=== PATIENT | female | born 1965 | race African-American/Black ===

== ENCOUNTER 2018-07-22 08:52 | Emergency (ER) | payer SELFPAY ==
[2018-07-22 09:06] VITALS: TEMP 97.9
--- NOTE | 2018-07-22 09:24 | ED.PDOC ---
History of Present Illness - General Chief Complaint: Respiratory Problem Stated Complaint: congestion, nosebleed Time Seen by Provider: 07/22/18 09:11 Source: patient Exam Limitations: no limitations - History of Present Illness Initial Comments: the patient is a 53-year-old -[place] female presenting to the emergency room secondary to symptoms of a mild intermittent headache along with a stuffy and runny nose and some mild sneezing for the last week. No fevers. No sore throat. This morning she had a little bit of right anterior epistaxis. She has not had any issues with epistaxis in the past. No bleeding problems. No easy bruising. No recent trauma. Physical exam shows the nares are boggy bilaterally. Tympanic membranes do have a small amount of fluid behind them. Lungs are clear. She does appear to have a small scratch at the base of the right anterior nares. It is hemostatic at this point. Timing/Duration: 1 week Severity: mild Improving Factors: nothing Worsening Factors: nothing Associated Symptoms: cough Allergies/Adverse Reactions: Allergies NO KNOWN ALLERGY Allergy (Verified 07/22/18 09:16) Home Medications: Ambulatory Orders Fluticasone Propionate (Nasal) [Flonase] 50 mcg BNAS BID #1 bottle 07/22/18 Review of Systems - Review of Systems Constitutional: States: malaise EENTM: States: nose congestion Respiratory: States: cough - mild Cardiology: States: no symptoms reported Gastrointestinal/Abdominal: States: no symptoms reported Genitourinary: States: no symptoms reported Musculoskeletal: States: no symptoms reported Skin: States: no symptoms reported Neurological: States: no symptoms reported Endocrine: States: no symptoms reported All other Systems: No Change from Baseline Past Medical History (General) - Patient Medical History Hx Stroke: No Hx Asthma: No Hx Congestive Heart Failure: No Hx Diabetes: No Surgical History: other Family Medical History - Family History Mother Family History: No Known Physical Exam - Physical Exam General Appearance: Alert, Comfortable, No apparent distress Eye Exam: bilateral normal Ears, Nose, Throat: hearing grossly normal, normal pharynx, nasal congestion Neck: full range of motion, supple Respiratory: lungs clear, normal breath sounds, no respiratory distress, no accessory muscle use Cardiovascular/Chest: normal peripheral pulses, regular rate, rhythm, no edema Peripheral Pulses: radial,right: 2+, radial,left: 2+, dorsalis pedis,right: 2+, dorsalis pedis,left: 2+ Gastrointestinal/Abdominal: non tender, soft Rectal Exam: deferred Extremity: normal range of motion, non-tender, normal inspection, no pedal edema , normal capillary refill 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 She was hemostatic upon arrival. She can apply a small amount of Vaseline to the right anterior nares a couple of times daily to help prevent any rebleeding. Additionally the patient can use a steroid nasal spray for which she'll be written a prescription or she can use an vzwi-jtg-jarioop steroid nasal spray as she wishes twice daily until her seasonal allergies have subsided. She did receive 1 dose of oral prednisone here today. A humidifier at night may also help prevent the nares from drying out and prevent rebleeding. To that end, it is also advisable to sleep without a fan or vent blowing on her face at night. She needs to keep routine follow- up with her primary care doctor otherwise. ER warnings were given. Departure - Departure Clinical Impression: Seasonal allergies, Anterior epistaxis Disposition: Discharge to Home or Self Care Condition: Fair Departure Forms: ED Discharge - Pt. Copy, Patient Portal Self Enrollment Instructions: Seasonal Allergies in Adults, Nosebleeds (DC) Diet: regular diet Activity: increase activity as tolerated Prescriptions: Fluticasone Propionate (Nasal) [Flonase] 50 mcg BNAS BID #1 bottle Home Medications: Ambulatory Orders Fluticasone Propionate (Nasal) [Flonase] 50 mcg BNAS BID #1 bottle 07/22/18 Additional Instructions: the patient is a 53-year-old female presenting to the emergency room with what appears to be allergic rhinitis of at least 1-2 weeks' duration along with an associated right anterior epistaxis. She was hemostatic upon arrival. She can apply a small amount of Vaseline to the right anterior nares a couple of times daily to help prevent any rebleeding. Additionally the patient can use a steroid nasal spray for which she'll be written a prescription or she can use an wpry-vbm-viahure steroid nasal spray as she wishes twice daily until her seasonal allergies have subsided. She did receive 1 dose of oral prednisone here today. A humidifier at night may also help prevent the nares from drying out and prevent rebleeding. To that end, it is also advisable to sleep without a fan or vent blowing on her face at night. She needs to keep routine follow- up with her primary care doctor otherwise. ER warnings were given.
[2018-07-22] MEDS: predniSONE 20 MG TAB PO ONE (09:29)
[2018-07-22 09:47] VITALS: BP 148/91; O2SAT 97
== END 2018-07-22 09:49 | disposition home or self-care (01) ==
LOC: ER 08:52
DX: J30.2 Other seasonal allergic rhinitis (principal); R04.0 Epistaxis

== ENCOUNTER 2018-07-23 12:59 | Emergency (ER) | payer SELFPAY ==
--- NOTE | 2018-07-23 13:26 | ED.PDOC ---
History of Present Illness - General Chief Complaint: ENT Problem Stated Complaint: nosebleed Time Seen by Provider: 07/23/18 13:12 Source: patient Exam Limitations: no limitations - History of Present Illness Initial Comments: Ara Inman 53 y/o female stated that she had been having nosebleeds since yesterday mostly right nostril. she had nasal congestion /drainage for 1 week.Denies nose pain or trauma.No chronic medical problem Timing/Duration: yesterday Severity: moderate EENT Location: nose Prearrival Treatment: over the counter meds Presenting Symptoms: nosebleed Improving Factors: nothing Worsening Factors: nothing Associated Symptoms: nasal congestion/drainage Allergies/Adverse Reactions: Allergies NO KNOWN ALLERGY Allergy (Verified 07/22/18 09:16) Home Medications: Ambulatory Orders Fluticasone Propionate (Nasal) [Flonase] 50 mcg BNAS BID #1 bottle 07/22/18 Amoxicillin [Amoxil] 1,000 mg PO BID 7 Days #30 cap 07/23/18 Loratadine & Pseudoephedrine [Claritin-D 24 Hour 10-240 mg] 1 tab PO DAILY #30 tab 07/23/18 Review of Systems - Review of Systems Constitutional: States: no symptoms reported EENTM: States: see HPI Respiratory: States: no symptoms reported Cardiology: States: no symptoms reported Gastrointestinal/Abdominal: States: no symptoms reported Genitourinary: States: no symptoms reported Musculoskeletal: States: no symptoms reported Skin: States: no symptoms reported Neurological: States: no symptoms reported Past Medical History (General) - Patient Medical History Hx Stroke: No Hx Asthma: No Hx Congestive Heart Failure: No Hx Diabetes: No Surgical History: no surgical history - Social History Hx Alcohol Use: Yes - 2 beers - Activities of Daily Living Patient Lives Alone: No - Female History Patient is a Female of Child Bearing Age (10 -59 yrs old): No Family Medical History - Family History Mother Family History: No Known Hx Family Hypertension: Yes - mom Hx Family Diabetes: Yes - mom Physical Exam - Physical Exam General Appearance: Alert, Comfortable, No apparent distress Eye Exam: bilateral normal Ear Exam: bilateral ear: auricle normal, canal normal, TM normal Nasal Exam: dried blood - right nostril > left Throat Exam: normal mouth inspection, pharynx normal Neck: non-tender, full range of motion, supple Cardiovascular/Respiratory: regular rate, rhythm, no M/R/G, normal peripheral pulses, no JVD, normal breath sounds Neurologic: alert, oriented x 3 Skin Exam: normal color, warm/dry Progress - Progress Progress: 07/23/18 14:21 Vital Signs - 8 hr 07/23/18 13:00 Pulse Rate [ 85 Apic] Respiratory 18 Rate Blood Pressure 144/102 [Left Arm] O2 Sat by Pulse 98 Oximetry - Results/Orders Results/Orders: Laboratory Results - last 24 hr 07/23/18 07/23/18 07/23/18 13:40 13:40 13:40 WBC 10.6 RBC 3.98 L Hgb 13.3 Hct 40.0 MCV 100.7 H MCH 33.4 H MCHC 33.3 RDW 13.0 Plt Count 295 MPV 7.2 L Absolute Neuts (auto) 6.90 H Absolute Lymphs (auto) 2.80 Absolute Monos (auto) 0.70 Absolute Eos (auto) 0.10 Absolute Basos (auto) 0.10 Neutrophils % 65.4 Lymphocytes % 26.0 Monocytes % 6.7 Eosinophils % 1.4 Basophils % 0.5 PT 9.2 INR 0.92 Sodium 142 Potassium 3.3 L Chloride 107 Carbon Dioxide 27 Anion Gap 11.3 L BUN 19 H Creatinine 1.32 H BUN/Creatinine Ratio 14.4 Random Glucose 88 Serum Osmolality 284.8 Calcium 9.4 Total Bilirubin 0.5 AST 21 ALT 17 Alkaline Phosphatase 82 Serum Total Protein 7.7 Albumin 4.1 Globulin 3.6 H Albumin/Globulin Ratio 1.1 Procedures - Additional Procedures Progress: Right nostril packed with rapid rhino tolerated procedure well Departure - Departure Clinical Impression: Anterior epistaxis, Renal insufficiency, Macrocytosis without anemia Time of Disposition: 14:25 Disposition: Discharge to Home or Self Care Condition: Fair Departure Forms: ED Discharge - Pt. Copy, Patient Portal Self Enrollment Instructions: Nosebleeds (DC), Nosebleeds Prescriptions: Amoxicillin [Amoxil] 1,000 mg PO BID 7 Days #30 cap Loratadine & Pseudoephedrine [Claritin-D 24 Hour 10-240 mg] 1 tab PO DAILY #30 tab Home Medications: Ambulatory Orders Fluticasone Propionate (Nasal) [Flonase] 50 mcg BNAS BID #1 bottle 07/22/18 Amoxicillin [Amoxil] 1,000 mg PO BID 7 Days #30 cap 07/23/18 Loratadine & Pseudoephedrine [Claritin-D 24 Hour 10-240 mg] 1 tab PO DAILY #30 tab 07/23/18 Additional Instructions: NEED TO STOP FLUTICASONE UNTIL NOSEBLEED BETTER may continue if no epistaxis; Continue with Afrin nose spray 3 sprays each nostril am/pm for 5 days then may use 2 sprays each nostril for nasal congestion 3 days on 3 days off;Removal of nasal packing 2017 [facility] [place]
[2018-07-23 13:35] VITALS: BP 144/102; O2SAT 98
[2018-07-23] MEDS ORDERED: OXYMETAZOLINE NASAL SPRAY 15 ML BTTL ONE (13:57)
[2018-07-23 14:47] VITALS: TEMP 98.8
== END 2018-07-23 14:47 | disposition home or self-care (01) ==
LOC: ER 12:59
DX: R04.0 Epistaxis (principal); N28.9 Disorder of kidney and ureter, unspecified; D75.89 Other specified diseases of blood and blood-forming organs

== ENCOUNTER 2019-04-17 05:26 | Day surgery (SDC) | payer BC ==
[2019-04-17] MEDS ORDERED: LACTATED RINGERS 1,000 ML ONE (06:46)
[2019-04-17] MEDS ORDERED: MIDAZOLAM INJ 2 MG/2 ML VIAL ONE (07:30)
[2019-04-17] MEDS ORDERED: fentaNYL CITRATE INJ 50 MCG/ML AMP ONE (07:30)
[2019-04-17 08:56] VITALS: O2SAT 97
--- NOTE | 2019-04-17 09:15 | OP ---
DATE OF PROCEDURE: 04/17/19 PREOPERATIVE DIAGNOSIS: 1. Age greater than 50 with no previous screening colonoscopy. POSTOPERATIVE DIAGNOSIS: 1. Colonoscopy completed to the cecum. 2. Ascending colon polyp removed with straight forceps biopsy. 3. Sigmoid pedunculated polyp, 6 mm in size, removed with a snare biopsy. 4. Moderate to severe sigmoid diverticulosis. PROCEDURE: 1. Colonoscopy with multiple polypectomies. SURGEON: Estiven Bonilla MD ANESTHESIA: Per Errol Caraballo CRNA. COMPLICATIONS: None apparent. ESTIMATED BLOOD LOSS: Less than 10 mL. TECHNIQUE: The patient was brought to the GI lab and laid in the left lateral decubitus position. Digital rectal exam was performed and found to be normal. The colonoscope was inserted into the rectum and gradually through to the cecum. Care was taken and the scope was advanced very slowly due to numerous diverticula noted in the sigmoid colon. The cecum appeared normal. The ileocecal valve was visualized, but not cannulated. The scope was withdrawn into the ascending colon where a 4 mm polyp was noted. This was biopsied with a straight forceps biopsy. Numerous bites were taken. It was felt to be adequately destroyed. The scope was then withdrawn into the transverse colon which appeared fairly normal, down into the descending colon where occasional polyps were noted and into the sigmoid colon where there were moderate diverticula noted. As we withdrew, in the more distal end of the sigmoid colon, there was a pedunculated polyp, 4 to 8 mm in size. This was biopsied initially with a straight forceps biopsy and then removed completely with a hot snare. The tissue was captured. The scope was then withdrawn on into the rectum. Retroflexion was attempted. It was difficult and not successful. The scope was straightened and just gradually withdrawn through the rectum and did have good visualization. This patient will be discharged home when she is cleared from anesthesia standpoint. DISPOSITION: The patient will be discharged home when she is cleared from anesthesia standpoint. She will need a repeat colonoscopy in 2 years based on the multiple polyps that we find. She will need to be counseled on diverticulosis and diets that can help that in the future. #[id number] MTDD
[2019-04-17 09:46] VITALS: BP 146/71; TEMP 97
[2019-04-17] MEDS ORDERED: LIDOCAINE 1% 10 ML VIAL INJ ONE (10:00)
[2019-04-17] MEDS ORDERED: PROPOFOL 200 MG/20 ML VIAL IV ONE (10:00)
== END 2019-04-17 09:27 | disposition home or self-care (01) ==
LOC: AMB 05:26
PROVIDERS: ATTEND Family Medicine
DX: Z12.11 Encounter for screening for malignant neoplasm of colon (principal); K63.5 Polyp of colon; K57.30 Diverticulosis of large intestine without perforation or abscess without bleeding; I10 Essential (primary) hypertension; F17.210 Nicotine dependence, cigarettes, uncomplicated; Z79.899 Other long term (current) drug therapy
CPT/HCPCS: 00811; 45380; 45385; J2250; J3010; J3490; J7120

== ENCOUNTER → 2019-04-23 | Outpatient (CLI) | payer BC ==
--- NOTE | 2019-04-24 08:04 | CT ---
EXAM DESCRIPTION: Abdomen/Pelvis w/o Contrast: Computed Tomography. CLINICAL HISTORY: 54 years Female MICROSCOPIC HEMATURIA COMPARISON: None. TECHNIQUE: Spiral-axial scans 2.5 x 2.5 mm intervals through the abdomen and pelvis without oral or IV contrast. Coronal and sagittal 2.0 mm reconstructions. Total Exam DLP: 618.68 mGy-cm. This exam was performed according to our departmental CT dose-optimization program which includes automated exposure control, adjustment of the mA and/or kV according to patient size and/or use of iterative reconstruction technique; to reduce radiation dose to as low as reasonably achievable (ALARA). FINDINGS: Lung bases and pleura: Small bilateral apical pleural scars. Liver, stomach, spleen, and adrenal glands: Left adrenal gland is elongated and slightly thickened with Hounsfield density +5 to plus 8HU. Right adrenal gland is unremarkable. Subcentimeter hypodense object in the upper right hepatic lobe with Hounsfield density +11. Pancreas, Gallbladder, and Ducts: Gallbladder visible with no surrounding fluid. Pancreatic head is indistinct which may be technical due to lack of surrounding fatty tissue for contrast. The remainder of the pancreas is unremarkable. Kidneys and Ureters: Atherosclerotic calcifications bilaterally but no radiodense stones in the urinary tracts. No hydronephrosis or perinephric fluid. Mesentery: No definite stranding fascial thickening free fluid or free air. Aorta: Caliber upper normal limits with moderate atherosclerotic calcification extending into the bilateral common iliac arteries and bilateral internal iliac arteries. Ectasia of the proximal right common iliac artery 1.3 cm. Small Bowel: Minimally distended with air-fluid levels but no definite obstruction. Terminal Ileum/Cecum: Unremarkable. Normal caliber of the appendix which contains mostly gas. Normal density of the surrounding fat. Colon: Minimal to moderate amount of fecal material throughout. Diverticula are noted in the mid descending colon and increasing in number into the sigmoid. Minimal redundancy. No inflammatory changes including the surrounding soft tissues. Pelvic Organs: Retroverted uterus. Bilateral small ovaries with no adnexal mass and no fluid in the cul-de-sac. Urinary bladder wall thickening. No gross intrinsic mass or extrinsic mass. Spine and Bony Pelvis: Minimal spondylosis at L3-L4 and also in the lower thoracic spine. Minimal hypertrophy of the bilateral superior lateral acetabular facets.. Abdominal Wall/Back Soft Tissues: Small bilateral fatty inguinal hernias not containing bowel. Minimal diastases of the umbilicus not containing bowel. IMPRESSION: 1. Vascular calcifications in the bilateral kidneys but no radiodense stones in the urinary tracts including kidneys ureters or bladder. No hydronephrosis or hydroureter bilaterally. Bladder wall is thickened which could represent cystitis, but other causes of bladder wall or mucosal thickening, including tumor, should be considered. Recommend urologic consult. 2. Minimal enlargement of the left adrenal gland with Hounsfield density less than +10, consistent with adenoma, which does not require imaging follow-up. 3. Diverticulosis of the colon with no complications. Appendix was visualized. Electronically signed by: Michael Botello MD 04/24/2019 8:02 AM CDT
== END ==
LOC: CT 07:57
PROVIDERS: ATTEND Family Medicine
DX: R31.21 Asymptomatic microscopic hematuria (principal); E27.9 Disorder of adrenal gland, unspecified; K57.30 Diverticulosis of large intestine without perforation or abscess without bleeding; I70.1 Atherosclerosis of renal artery

== ENCOUNTER → 2019-05-22 | Outpatient (CLI) | payer BC ==
--- NOTE | 2019-05-23 10:36 | MAM ---
EXAM DESCRIPTION: 3D Screening BILATERAL : Digital Mammography. CLINICAL HISTORY: 54 years Female ANNUAL SCREENING . No complaints. No personal history of breast cancer. Remote family history of breast cancer. Childbirth. Premenopausal. No HRT. Lifetime risk of developing breast cancer (Tyrer-Cuzick model)(%): 6.2. COMPARISON: Baseline study at this facility. No prior reports available. TECHNIQUE: Bilateral CC and MLO projection full-field images, digital tomosynthesis mammographic technique. Bilateral digital 2-D full-field MLO images. CAD not available for tomosynthesis or 2-D images. FINDINGS: The breast parenchymal density pattern is: Scattered areas of fibroglandular density. No skin thickening or nipple retraction. Focal asymmetry/architectural distortion in the middle third of the lower inner quadrant quadrant of the left breast approximately 5 cm from the nipple. Not associated with microcalcifications. No new focal, stellate mass or density, focal asymmetry , and no suspicious microcalcifications right breast. IMPRESSION: BI-RADS CATEGORY: 0 - INCOMPLETE- Need additional imaging evaluation. FOLLOW-UP: Recall for additional imaging: Left breast full-field LM tomosynthesis. Targeted left breast ultrasound of the region of interest.. Written communication concerning the IMPRESSION and Follow-up, will be mailed to the patient and referring health care provider. Electronically signed by: Michael Botello MD 05/23/2019 10:33 AM CDT
== END ==
LOC: MAMMO 08:00
PROVIDERS: ATTEND Family Medicine
DX: Z12.31 Encounter for screening mammogram for malignant neoplasm of breast (principal)

== ENCOUNTER → 2019-06-18 | Outpatient (CLI) | payer BC ==
--- NOTE | 2019-06-19 11:52 | US ---
EXAM DESCRIPTION: Breast,Left (accession [id number]), Diagnostic Mammo,Bilateral (accession [id number]): Ultrasound CLINICAL HISTORY: 54 yearsFemaleABNORMAL MAMMO focal asymmetry or architectural distortion left breast. COMPARISON: Bilateral screening digital breast tomosynthesis 05/22/2019. TECHNIQUE: Left breast LM projection full-field images, digital mammographic tomosynthesis technique. Left 2-D digital full-field LM image. CAD not available . Transcutaneous scanning of the left breast utilizing machado-scale mode. Scanning performed by the armored cable machine operator ; observation by Dr. Botello. FINDINGS: The breast parenchymal density pattern is: Scattered areas of fibroglandular density. No skin thickening or nipple retraction minimal focal asymmetry seen in the region of interest in the lower inner quadrant of the anterior third of the left breast. No new focal, stellate mass or density, , and no suspicious microcalcifications left breast. Ultrasound: Scanning lower inner quadrant of the left breast. Emphasis on the 8:00 position, 5 cm from the nipple. No dominant solid mass or distinct cyst. No parenchymal edema or large calcifications. No overlying skin changes. IMPRESSION: Benign exam. BIRAD CATEGORY: 2 BENIGN FINDINGS. RECOMMENDATIONS: FOLLOW UP: Return to routine digital bilateral mammographic screening, one year interval from May 2019. Written communication explaining the IMPRESSION and follow-up, will be mailed to the patient and referring health care provider. The FINDINGS and the FOLLOW-UP plan were reviewed in person with the patient after the examination. According to the [employer], yearly mammograms are recommended starting at age 40 and continuing as long as a woman is in good health. Any breast change noted on a breast self-exam should be reported promptly to the patient's healthcare provider. Breast MRI is recommended for women with an approximately 20-25% or greater lifetime risk of breast cancer, including women with a strong family history of breast or ovarian cancer and women who have been treated for Hodgkin's disease. A negative mammographic report should not delay tissue diagnosis in patients with significant clinical history or physical findings. Extremely dense breast tissue limits the sensitivity of digital mammography. Electronically signed by: Michael Botello MD 06/19/2019 11:50 AM CDT
== END ==
LOC: MAMMO 14:31
PROVIDERS: ATTEND Family Medicine
DX: R92.8 Other abnormal and inconclusive findings on diagnostic imaging of breast (principal)

== ENCOUNTER 2019-09-17 08:06 | Emergency (ER) | payer BC | END 2019-09-17 09:55 | disposition home or self-care (01) | LOC: ER 08:06 | DX: I10 Essential (primary) hypertension (principal); R51 Headache; F17.200 Nicotine dependence, unspecified, uncomplicated; Z91.14 Patient's other noncompliance with medication regimen; Z79.899 Other long term (current) drug therapy ==